=== PATIENT | male | born 1980 | race Caucasian/White ===

== ENCOUNTER 2019-11-27 12:56 | Emergency (ER) | payer OTHER ==
[2019-11-27 13:03] VITALS: BP 135/85
[2019-11-27] MEDS ORDERED: CEFTRIAXONE INJ 1000 MG VIAL IM ONE (13:14)
[2019-11-27] MEDS ORDERED: LIDOCAINE 1% INJ-PF (10 MG/ML) 30 ML SDV ONE (13:18)
--- NOTE | 2019-11-27 13:19 | ER Document Report ---
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 Patient states that he borrowed a knee brace from his mother is wearing it over the right knee due to some looseness in the right patella. He states after he took it off he noticed some areas where he had apparently been rubbed raw from the brace and subsequent blistering. He states he popped the blisters with his hands. He states that despite this the areas continue to worsen. He admits to surrounding redness and edema in the lower extremities. States that the areas are painful to palpation. He states they continue to fill out and drain. States he is not been wearing the brace since. Denies any fever, chills or night sweats. - Related Data Allergies/Adverse Reactions: No Known Allergies Allergy (Verified 11/27/19 13:08) Past Medical History - Social History Smoking Status: Unknown if Ever Smoked Family History: Reviewed & Not Pertinent Review of Systems - Review of Systems Constitutional: denies: Fever EENT: denies: Throat pain Cardiovascular: denies: Chest pain Respiratory: denies: Short of breath Gastrointestinal: denies: Abdominal pain Genitourinary: denies: Pain Male Genitourinary: No symptoms reported Musculoskeletal: Leg swelling Hematologic/Lymphatic: denies: Easy bleeding Neurological/Psychological: denies: Headaches Physical Exam - Vital signs Vitals: Temp Pulse Resp BP Pulse Ox 98.8 F 66 16 135/85 H 97 11/27/19 13:01 11/27/19 13:01 11/27/19 13:01 11/27/19 13:01 11/27/19 13:01 - General General appearance: Appears well, Alert In distress: None - Respiratory Respiratory status: No respiratory distress Chest status: Nontender Breath sounds: Normal Chest palpation: Normal - Cardiovascular Rhythm: Regular Heart sounds: Normal auscultation - Extremities Notes: 1+ pitting edema to bilateral lower extremities. 2+ DP/PT bilaterally. There are multiple erythematous lesions to the bilateral lower extremities, concentrated primarily on the right anterior surrounding the knee in the pattern of the prior brace that he was wearing. Localized cellulitis appreciated. No proximal streaking. No abscess formations. No weeping or drainage from the wound sites. Isolated lesion to the posterior left leg, similar in appearance. - Neurological Neuro grossly intact: Yes Cognition: Normal Orientation: AAOx4 - Psychological Associated symptoms: Normal affect, Normal mood - Skin Skin Color: Other - As described above Course - Re-evaluation Re-evalutation: 11/27/19 13:17 History and physical consistent with a cellulitis secondary to infected wounds of the legs. Given Rocephin IM here. Will be sent home on Bactrim. Counseled the patient regarding the importance of outpatient follow-up in 2 to 3 days for wound recheck and reevaluation. Advised to return here or any ER immediately with any new, persistent or worsening symptoms. He verbalized understood and agreed. - Vital Signs Vital signs: Temp Pulse Resp BP Pulse Ox 98.8 F 66 16 135/85 H 97 11/27/19 13:01 11/27/19 13:01 11/27/19 13:01 11/27/19 13:01 11/27/19 13:01 Discharge - Discharge Clinical Impression: Cellulitis Qualifiers: Site of cellulitis: unspecified site Qualified Code(s): L03.90 - Cellulitis, unspecified Condition: Stable Disposition: HOME, SELF-CARE Instructions: Cellulitis ([facility]) Additional Instructions: Follow-up with your regular doctor in 2 to 3 days for reevaluation. Return here or any ER immediately with any new, persistent or worsening symptoms. Prescriptions: Sulfamethoxazole/Trimethoprim [Bactrim Ds Tablet] 1 each PO BID #20 tablet Referrals: NII ESCOBEDO MD [ACTIVE STAFF] - Follow up as needed
== END 2019-11-27 13:45 | disposition home or self-care (01) ==
LOC: ER 12:56
DX: L03.116 Cellulitis of left lower limb (principal); L03.115 Cellulitis of right lower limb; R60.0 Localized edema
CPT/HCPCS: 99283; 96372; J3490; J0696